=== PATIENT | female | born 1990 | race Caucasian/White ===

== ENCOUNTER 2023-04-24 21:02 | Emergency (ER) | payer OTHER ==
[~2023-04-24] VITALS: Ht 157.5 cm; Wt 72.6 kg
[2023-04-24 22:03] VITALS: BP 136/83; TEMP 98.4; O2SAT 97
--- NOTE | 2023-04-24 22:09 | NUR ---
BIBSELF FROM HOME C/O CONGESTION. HOME TEST COVID + THIS MORNING. PT A/OX4. TOLERATING R/A WELL WITH NO RESP DISTRESS. AFEBRILE. SAFETY MEASURES IN PLACE.
--- NOTE | 2023-04-24 22:10 | NUR ---
EVALUATED BY DR YOLANDA OSORIO
[2023-04-24] MEDS ORDERED: FLUT9.9S NS (22:16)
[2023-04-24] MEDS ORDERED: PAXLOVID PO (22:16)
[2023-04-24] MEDS ORDERED: GUAI600T53 PO (22:16)
== END 2023-04-24 22:22 | disposition home or self-care (01) ==
LOC: ER 21:02
DX: U07.1 COVID-19 (principal); R09.81 Nasal congestion; Z79.899 Other long term (current) drug therapy; Z60.2 Problems related to living alone